=== PATIENT | female | born 1965 | race Two or more races ===

== ENCOUNTER 2024-03-14 17:05 | Emergency (ER) | payer OTHER ==
[~2024-03-14] VITALS: Ht 160 cm; Wt 72.6 kg
[2024-03-14] MEDS ORDERED: SYNTHROID75 MCG PO (17:37)
== END 2024-03-14 20:06 | disposition home or self-care (01) ==
LOC: ER 17:07
DX: S20.229A Contusion of unspecified back wall of thorax, initial encounter (principal); W18.39XA Other fall on same level, initial encounter; Y93.89 Activity, other specified; Y92.89 Other specified places as the place of occurrence of the external cause